=== PATIENT | male | born 1945 | race Caucasian/White ===

== ENCOUNTER 2019-04-13 05:46 | Inpatient (IN) ==
[2019-04-02 15:35] LABS: Appearance,Urine CLEAR; Bilirubin,Urine NEG (NEG); Color,Urine STRAW; Culture Indicated,Urine NO; Glucose,Urine (UA) NEGATIVE (NEG); Ketones,Urine NEG (NEG); Leukocyte Esterase,Urine NEG /uL (NEG); Nitrate,Urine NEG (NEG); Protein,Urine NEG (NEG); Specific Gravity,Urine 1.015 (1.000-1.035); Urine Blood NEG mg/dL (<0.03); Urobilinogen,Urine NEG (NEG)
[2019-04-02 16:38] LABS: Basophils # (Auto) 0 K/mcL (0.0-0.3); Basophils % (Auto) 0.3 % (0.0-2.0); Eosinophils # (Auto) 0 K/mcL (0.0-0.7); Eosinophils % (Auto) 0.6 % (0.0-7.0); Granulocytes % (Auto) 76.3 % (38.0-78.0); Hematocrit 44.6 % (41.0-55.0); Hemoglobin 14.6 g/dL (13.5-16.5); Lymphocytes % (Auto) 16.9 % (15.5-49.0); Mean Cell Volume 93.7 fL (80.0-100.0); Mean Corpuscular HGB Conc 32.8 g/dL (31.0-36.0); Mean Platelet Volume 8.1 fL (7.4-10.4); Monocytes # (Auto) 0.3 K/mcL (0.1-0.9); Monocytes % (Auto) 5.9 % (1.0-12.0); Platelet Count 254 K/mcL (140-440); RBC 4.76 M/mcL (4.50-5.90); Red Cell Distribution Width 15.5 % (11.5-14.5); WBC 5.7 K/mcL (4.5-11.0)
[2019-04-02 16:43] LABS: Blood Urea Nitrogen 30 mg/dl (8-23); Carbon Dioxide 25 mmol/L (22-30); Chloride 99 mmol/L (96-108); Glomerular Filtration Rate 90; Glucose 93 mg/dL (70-105)
[2019-04-02 16:51] LABS: Estimated Average Glucose(eAG) 114 mg/dL; Hemoglobin A1C 5.6 % HGB (4.0-6.0)
[~2019-04-13 05:46] MED LIST: IPRATROPIUM/ALBUTEROL 3 ML AMPUL.NEB NEB PRN; SCOPOLAMINE 1 PATCH PATCH TOPICAL PRN
[2019-04-13] MEDS ORDERED: ceFAZolin 2 GM in DEXTROSE 5% IN WATER 50 ML IV SCH (06:00)
[2019-04-13] MEDS ORDERED: oxyCODONE 10 MG TAB.ER.12H PO SCH (06:00)
[2019-04-13] MEDS ORDERED: PREGABALIN 75 MG CAPSULE PO SCH (06:00)
[2019-04-13] MEDS ORDERED: CELECOXIB 200 MG CAPSULE PO SCH (06:00)
[2019-04-13] MEDS ORDERED: ROCURONIUM 10 MG/ML ML IV ONE (09:30)
[2019-04-13] MEDS ORDERED: KETAMINE 100 MG/ML ML IV ONE (09:30)
[2019-04-13] MEDS ORDERED: GLYCOPYRROLATE 0.2 MG/ML VIAL IV ONE (09:30)
[2019-04-13] MEDS ORDERED: DEXAMETHASONE 10 MG/ML VIAL IV ONE (09:30)
[2019-04-13] MEDS ORDERED: PHENYLEPHRINE 10 MG/ML VIAL IV ONE (09:30)
[2019-04-13] MEDS ORDERED: MIDAZOLAM 2 MG/2 ML VIAL IV ONE (09:30)
[2019-04-13] MEDS ORDERED: SUGAMMADEX SODIUM 200 MG/2 ML VIAL IV ONE (09:30)
[2019-04-13] MEDS ORDERED: TRANEXAMIC ACID 1,000 MG/10 ML VIAL IV ONE ×2 (09:30→11:10)
[2019-04-13] MEDS ORDERED: HYDROmorphone 2 MG/ML VIAL IV ONE (09:30)
[2019-04-13] MEDS ORDERED: ESMOLOL 100 MG/10 ML VIAL IV ONE (09:30)
[2019-04-13] MEDS ORDERED: PROPOFOL 200 MG/20 ML VIAL IV ONE (09:30)
[2019-04-13] MEDS ORDERED: LIDOCAINE HCL/PF 100 MG/5 ML SYRINGE IV ONE (09:30)
[2019-04-13] MEDS ORDERED: ONDANSETRON 4 MG/2 ML VIAL IV ONE (09:30)
[2019-04-13] MEDS ORDERED: NALBUPHINE 10 MG/ML AMPUL IV ONE (09:30)
[2019-04-13] MEDS ORDERED: fentaNYL 100 MCG/2 ML VIAL IV PRN (11:08)
[2019-04-13] MEDS ORDERED: ACETAMINOPHEN 1,000 MG/100 ML BOTTLE IV ONE (11:08)
[2019-04-13] MEDS ORDERED: METHOCARBAMOL 1,000 MG/10 ML VIAL IV PRN (11:08)
[2019-04-13] MEDS ORDERED: ONDANSETRON 4 MG/2 ML VIAL IV PRN (11:08)
[2019-04-13] MEDS ORDERED: NALOXONE HCL 0.4 MG/ML VIAL IV PRN (11:08)
[2019-04-13] MEDS ORDERED: IPRATROPIUM/ALBUTEROL 3 ML AMPUL.NEB NEB PRN (11:08)
[2019-04-13] MEDS ORDERED: POLYETHYLENE GLYCOL 3350 17 GM PACKET PO PRN (11:10)
[2019-04-13] MEDS ORDERED: BISACODYL 10 MG SUPP.RECT PR PRN (11:10)
[2019-04-13] MEDS ORDERED: HYDROCODONE/APAP 7.5/325MG TABLET PO PRN (11:10)
[2019-04-13] MEDS ORDERED: BENZOCAINE/MENTHOL 1 LOZENGE PO PRN (11:10)
[2019-04-13] MEDS ORDERED: FLEETS ADULT ENEMA PR PRN (11:10)
[2019-04-13] MEDS ORDERED: MAGNESIUM HYDROXIDE 30 ML ORAL.SUSP PO PRN (11:10)
[2019-04-13] MEDS ORDERED: KETOROLAC 15 MG/ML VIAL IV PRN (11:10)
--- NOTE | 2019-04-13 11:10 | Brief Operative Note ---
Date of procedure: 04/13/19 Pre-op diagnosis: Left shoulder severe OA Post-op diagnosis: same Procedure: 1)Left total shoulder arthroplasty 2)Biceps tenodesis Grafts/Implants: Yes (Tornier cortiloc L50 glenoid, 3 simplicity, 50x16 head) Anesthesia: GETA Findings: severe arthritis, intact rotator cuff Complications: none Surgeon: Shayan Licea Hand Inspector: Jesus Akers Estimated blood loss (cc): 150 Specimens Removed/Pathology: none sent Condition: stable Disposition: PACU
[2019-04-13] MEDS ORDERED: LACTATED RINGERS 1,000 ML IV SCH (11:15)
[2019-04-13] MEDS ORDERED: BUPIVACAINE W/EPI 0.5% 50 ML VIAL IJ ONE (11:16)
--- NOTE | 2019-04-13 11:57 | XRay Report ---
CLINICAL INFORMATION: Postsurgical follow-up TECHNIQUE: AP and axillary views of the left shoulder COMPARISON: None. FINDINGS: Status post left shoulder arthroplasty. Alignment is anatomic. There is postsurgical soft tissue gas. There are skin mario present. IMPRESSION: Postoperative left shoulder. Anatomic alignment Interpreted and Authenticated by: Zhen Hardin 04/13/19
--- NOTE | 2019-04-13 12:06 | Operative Note ---
DATE OF OPERATION: 04/13/2019 PREOPERATIVE DIAGNOSIS: Left shoulder severe osteoarthritis with presumed intact rotator cuff. POSTOPERATIVE DIAGNOSIS: Left shoulder severe [id number] osteoarthritis with intact rotator cuff, and biceps tendinopathy. PROCEDURE PERFORMED: 1. Left total shoulder arthroplasty placing a Tornier Simpliciti size 3 nucleus with a 50 x 16 mm humeral head and a large 50 CortiLoc glenoid. 2. Biceps tenodesis. SURGEON: Shayan Licea MD LAWYER CRIMINAL: Candido Akers PA-C. This provider's expertise and technical skill were required throughout the case. The PA assisted with preoperative coordination, intraoperative retraction, wound closure, dressing and splint application, as well as postoperative documentation and care coordination. ANESTHESIA: General. DRAINS: None. SPECIMENS: None. COMPLICATIONS: None. BLOOD LOSS: 150 mL POSTOPERATIVE CONDITION: Stable. INDICATIONS FOR SURGERY: This is a 73-year-old male with longstanding progressive worsening left shoulder pain. Radiographs showed severe [id number]-kp-lvzs osteoarthritis, without proximal migration of the humeral head. FINDINGS AT SURGERY: He did have severe arthritis. Rotator cuff was intact. Post implantation showed satisfactory component position, range of motion and stability. PROCEDURE IN DETAIL: The patient had been seen preoperatively. Informed consent had been obtained after discussion of risks and benefits of surgery. Risks including, but not limited to, bleeding; infection, possibly requiring implant removal, prolonged IV antibiotics; injury to nerves, blood vessels, and other surrounding structures; anesthetic risks; incomplete or no resolution of symptoms; stiffness; weakness; pain, dislocation; fracture, possibility of needing further surgery. He understood these risks and wished to proceed. Correct operative site was marked. The patient was taken to the operating room. General anesthesia induced. He was carefully positioned in the beach chair position and pressure points carefully padded. He did have quite significant kyphosis of the spine making positioning of his head in ideal position difficult. We then carefully prepped and draped the left shoulder and upper extremity in normal sterile fashion. A timeout was performed verifying patient name, operative site, and plan. Ioban was used to cover all skin surfaces and a standard deltopectoral incision was made with scalpel through skin and subcutaneous tissue. Hemostasis was obtained with Bovie cautery. IrriSept was irrigated. We then dissected down onto the deltopectoral interval. He did not have a visible cephalic vein. However, we were able to identify the interval between the fibers of the deltoid going superior and the fibers of the pec going medial. We carefully dissected down through the interval and then blunt finger dissection used to develop the subdeltoid space. Elizondo deltoid retractor was placed. Inspection revealed an intact cuff. Lateral edge of the conjoint tendon was identified and blue handle retractor placed underneath. The biceps was quite tendinopathic. We unroofed it and split the rotator interval. I then amputated the biceps off the glenoid. A large curved osteotome was used to make a lesser tuberosity osteotomy and then a traction suture was placed. We then sequentially externally rotated the arm to dislocate it and deliver the humeral head out anteriorly. I then released capsule around the medial neck and then osteophytes were removed with a curved osteotome. Once we had the head size back to normal I then went to expose the glenoid, trying to keep the humeral head; however, he was very tight and exposure of the glenoid was not possible with the humeral head in place, so I went ahead and chose to switch to a Simpliciti. The neck cut guide was placed anatomic and pinned into place and then the saw was used to make the neck cut. He sized to the largest nucleus size, a size 3. We placed a guide pin and did the reamer and then the punch, which we then left in place as our cut protector. We then went back to expose the glenoid. This was much easier with the head removed. I removed the labrum circumferentially as well as released capsule, careful to stay right on bone around the inferior margin. We then sized the glenoid to a large 50. The guide was placed with the 10 degree anteversion and we placed down the central scapula. We then started reaming. We did ream a little more anteriorly which did correct some of the retroversion. We reamed until we had contacted bone circumferentially and then a central peg drill was used and then the guide pin was removed. The peripheral peg drill guide was placed and we drilled our three peripheral pegs. We then trialed a 50 large which fit nicely, so we went ahead and removed this. A 50 CortiLoc glenoid large was opened. I irrigated the joint with IrriSept. DBX was placed within the flute of the central peg and then cement was mixed. We then pulse lavaged with saline and then used a syringe to inject the three peripheral holes and pressurize. I then impacted the glenoid until it was fully seated and held this perfectly still while cement hardened. Once cement was fully hardened, we re-exposed the humeral head and trialed a 16. This gave us good anterior to posterior subluxation of about 50%, so we went ahead and removed trial implants. A size 3 Simpliciti nucleus was opened. We irrigated the humeral cut with IrriSept, after a minute pulse lavaged with saline and then the nucleus was impacted until it was fully seated. We then placed the 50 x 16 head. The shoulder was reduced back into the glenoid and then two drill holes were made in the bicipital groove and a #2 FiberWire was used to repair the lesser tuberosity osteotomy in a [id number] stitch around the bone fragment and tendon. This secured the tuberosity down nicely. I placed several more [id number]-flozf in the rotator interval. The traction sutures we passed through the biceps tendon and then out the bone of the proximal humerus lateral and tied to tenodese. We amputated the proximal stump and then irrigated with IrriSept, after a minute pulse lavaged with saline and then #1 Vicryl running stitch was used to close the deltopectoral interval. Final IrriSept irrigation was done and then final saline irrigation and then 2-0 Monocryl used for subcutaneous and mario for skin. Local anesthetic was injected. Sterile dressing was applied. Arm was placed in an abductor immobilizer. The patient was awakened, extubated, and transferred to recovery in stable condition. [email or web address] Job ID: [id number] Doc ID: [id number] Shayan Licea MD
[2019-04-13] MEDS: 0.9 % SODIUM CHLORIDE 1,000 ML IV SCH ×2 (12:19→22:14)
[2019-04-13] MEDS: ONDANSETRON 4 MG/2 ML VIAL IV PRN ×2 (13:53→18:36)
[2019-04-13] MEDS: 0.9 % SODIUM CHLORIDE 10 ML SYRINGE IV SCH ×2 (14:14→22:14)
[2019-04-13] MEDS: ceFAZolin 1 GM VIAL IV SCH (17:21)
[2019-04-13] MEDS: DOCUSATE SODIUM 100 MG CAPSULE PO SCH (20:29)
[2019-04-13] MEDS: SERTRALINE 50 MG TABLET PO SCH (20:30)
[2019-04-13] MEDS ORDERED: MULTIVIT,THER IRON,CA,FA & MIN 1 TABLET PO SCH (21:00)
[2019-04-13] MEDS ORDERED: SENNOSIDES 1 TABLET PO SCH (21:00)
[2019-04-13] MEDS ORDERED: LISINOPRIL 5 MG TABLET PO SCH (21:00)
[2019-04-14] MEDS: ceFAZolin 1 GM VIAL IV SCH (01:38)
[2019-04-14] MEDS: 0.9 % SODIUM CHLORIDE 10 ML SYRINGE IV SCH (04:37)
[2019-04-14] MEDS: 0.9 % SODIUM CHLORIDE 1,000 ML IV SCH (07:52)
[2019-04-14] MEDS: SERTRALINE 50 MG TABLET PO SCH (07:57)
[2019-04-14] MEDS: DOCUSATE SODIUM 100 MG CAPSULE PO SCH (07:57)
--- NOTE | 2019-04-14 08:18 | Orthopedic Progress Note ---
Subjective Patient information: Note initiated : 04/14/19 at 8:16 am Service Date, if different from initiated Date: [] Patient: Estrada Foss 73 y/o M admitted on 04/13/19 for Left Total Shoulder Arthroplasty vs. Reverse . Chief Complaint: [Pt is stable this morning on post operative day 1 without any significant concerns or complaints. Patients vital signs have remained stable. Patients dressing is dry and is grossly intact from a ne urovascular and motor standpoint. Patients 10 point ROS is otherwise negative. ] Objective Vital signs: Vital Signs Temp Pulse Resp BP BP Pulse Ox 04/14/19 07:31 98.5 F 95 H 18 126/85 96 04/14/19 04:00 98.3 F 89 16 116/73 95 04/13/19 23:54 98.1 F 76 16 115/76 95 04/13/19 19:10 97.4 F 94 H 18 127/77 93 04/13/19 18:00 94 04/13/19 16:04 98.1 F 16 106/70 96 04/13/19 14:00 94 H 108/63 96 04/13/19 13:30 112 H 114/68 96 04/13/19 13:00 121 H 126/81 97 04/13/19 12:45 108 H 126/73 96 04/13/19 12:30 116 H 130/75 95 04/13/19 12:15 104 H 116/72 96 04/13/19 12:01 98.1 F 125 H 16 106/68 98 04/13/19 12:00 97.1 F 16 116/72 96 04/13/19 11:43 97.5 F 127 H 12 119/71 97 04/13/19 11:38 130 H 103/71 95 04/13/19 11:33 124 H 14 97/70 94 04/13/19 11:28 98.0 F 121 H 10 L 111/67 97 Intake and Output 04/13/19 04/14/19 04/14/19 21:59 05:59 13:59 Intake Total 0 3000 Output Total 550 200 Balance -550 2800 Intake: IV 1000 Sodium Chloride 0.9% 1,000 ml @ 1000 100 mls/hr IV .Q10H MERLENE Rx#: [id number] Oral 0 2000 Output: Void Amount 550 200 Other: Urine Appearance Clear Clear Urine Color Dark Yellow Dark Yellow # Voids 1 Weight 208 lb 9.6 oz Intake & Output: Intake & Output 04/13/19 04/14/19 04/14/19 21:59 05:59 13:59 Intake Total 0 3000 Output Total 550 200 Balance -550 2800 Weight 208 lb 9.6 oz Intake: IV 1000 Sodium Chloride 0.9% 1,000 ml @ 1000 100 mls/hr IV .Q10H MERLENE Rx#: [id number] Oral 0 2000 Output: Void Amount 550 200 Other: Urine Appearance Clear Clear Urine Color Dark Yellow Dark Yellow # Voids 1 Incision: Yes healing Incision clean and dry: Yes Dressing: Yes clean Weight bearing status: full Neurological exam IM: Yes motor sensory intact, Yes neurovascular intact Extremities exam IM: Yes Foot pink and warm, Yes neurovascular intact - Labs CBC & BMP: 04/02/19 12:37 04/02/19 12:37 Labs: 04/02/19 12:37 Hgb 14.6 Hct 44.6 Assessment and Plan (1) History of reverse total replacement of left shoulder joint The patient has been educated regarding dressing care, Physical Therapy recommendations, home exercises, restrictions, and follow up appointments. The patient has had all necessary DME prescribed. The patient has remained relatively stable during their hospital course. Status: Acute
--- NOTE | 2019-04-14 08:20 | Discharge Summary ---
Ortho Discharge - TSA - Patient Instructions Diet: Regular Diet Activity: activity as tolerated, weight bearing as tolerated Total Shoulder Protocol: Leave immobilizer in place except for bathing and ROM. Abduction pillow. Continue to wear sling until seen by physician. Codman Pendulum : These exercises use momentum produced by your body to move your shoulder joint. Bend your knees and shift your weight to your front leg, then back, allowing your arm to swing in the same directions. Using the same technique, alternately shift your weight between your right and left legs, allowing your arm to swing from side to side. These exercises are also performed in counterclockwise and clockwise circular motions. Typically these exercises are performed several times per day, for a set number repetitions or minutes, such as 20 times in a row or 5 minutes at a time. Dressing Care: May shower in 2 days, Aquacel Ag - leave on for 5 days Additional Instructions: Discharge Instructions: Per Dr Licea you need to follow up with your primary care physician for your abnormal heart rhythm. Please call and schedule a follow up appointment with your doctor this next week. - Problem Maintenance (1) History of reverse total replacement of left shoulder joint Status: Acute - Follow Up Plan Disposition: Home, Self-Care Prognosis: Good Rehab Potential: Good I certify that the patient requires SNF services: No Overall status at discharge: patient is progressing back to baseline - Orders For Discharge Prescriptions: Docusate Sodium [Colace] 100 mg PO BID #60 cap Transmission Status: Pending to [facility] Hydrocodone/APAP 7.5/325Mg [[place] 7.5-325Mg] 1 - 2 tab PO Q4HP PRN #75 tab PRN Reason: Per Pain Protocol Prescription Printed
== END 2019-04-14 12:16 | disposition home or self-care (01) | DRG 483 ==
LOC: MEDSUR 05:46
PROVIDERS: ADMIT Orthopaedic Surgery; ATTEND Orthopaedic Surgery